=== PATIENT | female | born 1985 | race Two or more races ===

== ENCOUNTER 2016-12-04 10:51 | Emergency (ER) | payer OTHER ==
[~2016-12-04] VITALS: Ht 144.8 cm; Wt 49.0 kg
[2016-12-04 11:05] VITALS: BP 106/55
--- NOTE | 2016-12-04 11:31 | PHYS DOC ---
Past Medical History Past Medical History: No Pertinent History Past Surgical History: Appendectomy, Cholecystectomy, , Tubal ligation Alcohol Use: None Drug Use: None Adult General Chief Complaint Chief Complaint: SORE THROAT HPI HPI Patient is a 31 year old female presents to the emergency department with a history of sore throat, right ear pain and headache since yesterday. Patient denies fever, chills, nausea or vomiting. Patient had taken Ibuprofen yesterday however has not taken any since. Review of Systems Review of Systems Constitutional: Denies fever or chills [] Eyes: Denies change in visual acuity, redness, or eye pain [] HENT: Denies nasal congestion. C/o sore throat, right ear pain Respiratory: Denies cough or shortness of breath [] Cardiovascular: No additional information not addressed in HPI [] GI: Denies abdominal pain, nausea, vomiting, bloody stools or diarrhea [] : Denies dysuria or hematuria [] Musculoskeletal: Denies back pain or joint pain [] Integument: Denies rash or skin lesions [] Neurologic: headache, denies focal weakness or sensory changes [] Endocrine: Denies polyuria or polydipsia [] Allergies Allergies Allergies Coded Allergies Type Severity Reaction Last Updated Verified No Known Drug Allergies 03/25/15 No Physical Exam Physical Exam Constitutional: Well developed, well nourished, no acute distress, non-toxic appearance. [] HENT: Normocephalic, atraumatic, bilateral external ears normal, oropharynx moist, no oral exudates, nose normal. Bilateral TM normal, throat red no erythema noted. Eyes: PERRLA, EOMI, conjunctiva normal, no discharge. [] Neck: Normal range of motion, no tenderness, supple, no stridor. [] Cardiovascular:Heart rate regular rhythm, no murmur [] Lungs & Thorax: Bilateral breath sounds clear to auscultation [] Skin: Warm, dry, no erythema, no rash. [] Extremities: No tenderness, no cyanosis, no clubbing, ROM intact, no edema. [] Neurologic: Alert and oriented X 3, normal motor function, normal sensory function, no focal deficits noted. [] Psychologic: Affect normal, judgement normal, mood normal. [] Current Patient Data Vital Signs Vital Signs Date Time Temp Pulse Resp B/P (MAP) Pulse Ox O2 Delivery O2 Flow Rate FiO2 12/04/16 11:05 98.8 72 16 98 Room Air 98.8 EKG EKG [] Radiology/Procedures Radiology/Procedures [] Course & Med Decision Making Course & Med Decision Making Pertinent Labs and Imaging studies reviewed. (See chart for details) Patient will be discharged home in stable condition. Signs and symptoms to return to the emergency department has been provided. Recommended plenty of fluids such as water, gatorade and propel. Tylenol or ibuprofen for pain and discomfort. Patient was instructed to followup with primary care provider in 3- 5 days. Patient agrees with discharge instructions, treatment regimen and followup recommendations. All questions and concerns answered at patients bedside. All HPI, and discharge instructions was given via dot etcher apprentice line as patient speaks [place] only. [] Dragon Disclaimer Dragon Disclaimer This electronic medical record was generated, in whole or in part, using a voice recognition dictation system. Departure Departure Impression: Primary Impression: Pharyngitis Additional Impression: Viral infection Disposition: HOME, SELF-CARE Condition: STABLE Referrals: NO PCP (PCP) Patient Instructions: Viral Infections, [id number], Viral and Bacterial Pharyngitis, [id number] Additional Instructions: Activity as tolerated Sudafed and Mucinex DM as directed by manufacture Drink plenty of fluids: water, gatorade, propel Tylenol or Ibuprofen for pain and discomfort Followup with primary care provider in 3-5 days Return to emergency department as needed for signs and symptoms that become worse. Problem Qualifiers Primary Impression: Pharyngitis Pharyngitis/tonsillitis etiology: unspecified etiology Qualified Codes: J02.9 - Acute pharyngitis, unspecified GENEVIEVE ANTONIO COLD HEADER Dec 04, 2016 11:31
[2016-12-04 11:43] LABS: NEGATIVE OBC STREP NEG; POSITIVE OBC STREP POS
== END 2016-12-04 11:34 | disposition home or self-care (01) ==
LOC: ER 10:51
DX: J02.9 Acute pharyngitis, unspecified (principal); H92.01 Otalgia, right ear; R51 Headache
CPT/HCPCS: 87070; 87880; 99283

== ENCOUNTER 2016-12-07 13:24 | Emergency (ER) | payer OTHER ==
[~2016-12-07] VITALS: Ht 147.3 cm; Wt 49.0 kg
[2016-12-07 13:30] VITALS: BP 110/65
[2016-12-07 14:09] LABS: NEGATIVE OBC STREP NEG; POSITIVE OBC STREP POS
--- NOTE | 2016-12-07 14:16 | EKG ---
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
--- NOTE | 2016-12-07 14:30 | RAD ---
Chest x-ray Indication: Cough, sore throat Technique: PA and lateral views of the chest Comparison: None Findings: Heart is normal in size. Lungs are clear. No pneumothorax or pleural effusion. Visualized bony thorax within normal limits. Impression: No acute cardiopulmonary process.
[2016-12-07] MEDS ORDERED: METH4TAB2 PO (14:44)
[2016-12-07] MEDS ORDERED: AZIT250T6 PO (14:44)
--- NOTE | 2016-12-07 14:44 | PHYS DOC ---
Past Medical History Past Medical History: No Pertinent History Past Surgical History: Appendectomy, Cholecystectomy, , Tubal ligation Alcohol Use: None Drug Use: None Adult General Chief Complaint Chief Complaint: COUGH HPI HPI Patient is a 31 year old female presents the ED complaining of cough 5 days. Patient states she was seen in the ED 4 days ago and discharged with no medications. States she was told to take motrin for her pain with her cough. Patient states she has been taking ibuprofen which helps with her pain when she coughs but is not getting any better. Associated symptoms include rhinorrhea and sore throat. Patient also complains of subjective fever. Denies shortness of breath, weakness, recent travel, nausea/vomiting, abdominal pain, dizziness, syncope or change in stools. Review of Systems Review of Systems Constitutional: Complains of subjective fever. Denies chills [] Eyes: Denies change in visual acuity, redness, or eye pain [] HENT: Denies nasal congestion. Complains of sore throat. [] Respiratory: Complains of cough. Denies shortness of breath. [] Cardiovascular: No additional information not addressed in HPI [] GI: Denies abdominal pain, nausea, vomiting, bloody stools or diarrhea [] : Denies dysuria or hematuria [] Musculoskeletal: Denies back pain or joint pain [] Integument: Denies rash or skin lesions [] Neurologic: Denies headache, focal weakness or sensory changes [] Endocrine: Denies polyuria or polydipsia [] Allergies Allergies Allergies Coded Allergies Type Severity Reaction Last Updated Verified No Known Drug Allergies 03/25/15 No Physical Exam Physical Exam Constitutional: Well developed, well nourished, no acute distress, non-toxic appearance. [] HENT: Normocephalic, atraumatic, bilateral external ears normal, oropharynx moist, MILD PHARYNGEAL ERYTHEMA AND SWELLING. UVULA MIDLINE. NO PERITONSILAR ABSCESS. no oral exudates, nose normal. [] Eyes: PERRLA, EOMI, conjunctiva normal, no discharge. [] Neck: Normal range of motion, no tenderness, supple, no stridor. [] Cardiovascular:Heart rate regular rhythm, no murmur [] Lungs & Thorax: Bilateral breath sounds clear to auscultation [] Abdomen: Bowel sounds normal, soft, no tenderness, no masses, no pulsatile masses. [] Skin: Warm, dry, no erythema, no rash. [] Back: No tenderness, no CVA tenderness. [] Extremities: No tenderness, no cyanosis, no clubbing, ROM intact, no edema. [] Neurologic: Alert and oriented X 3, normal motor function, normal sensory function, no focal deficits noted. [] Psychologic: Affect normal, judgement normal, mood normal. [] Current Patient Data Vital Signs Vital Signs Date Time Temp Pulse Resp B/P (MAP) Pulse Ox O2 Delivery O2 Flow Rate FiO2 12/07/16 13:30 98.4 90 18 99 Room Air 98.4 Lab Values Laboratory Tests Test 12/07/16 14:00 Group A Streptococcus Rapid Negative (NEGATIVE) EKG EKG [] Radiology/Procedures Radiology/Procedures PROCEDURE: CHEST PA & LATERAL Chest x-ray Indication: Cough, sore throat Technique: PA and lateral views of the chest Comparison: None Findings: Heart is normal in size. Lungs are clear. No pneumothorax or pleural effusion. Visualized bony thorax within normal limits. Impression: No acute cardiopulmonary process.[] Course & Med Decision Making Course & Med Decision Making Pertinent Labs and Imaging studies reviewed. Discussed labs and imaging with patient. Patient's pain improved. Vital stable, no acute distress. Discussed follow-up with patient. Discussed reasons to return to the ED. Patient understands and agrees with plan. Dragon Disclaimer Dragon Disclaimer This electronic medical record was generated, in whole or in part, using a voice recognition dictation system. Departure Departure Impression: Primary Impression: Pharyngitis Additional Impression: Cough Disposition: 01 HOME, SELF-CARE Condition: STABLE Referrals: GINNA CALDERÓN MD (PCP) Patient Instructions: Cough, Adult, Viral Pharyngitis Scripts Methylprednisolone (MEDROL) 4 Mg Tab.ds.pk 1 PKG PO UD, #1 PKG Prov: FORTUNATO DIAZ 12/07/16 Azithromycin (AZITHROMYCIN TABLET) 250 Mg Tablet 1 PKG PO UD, #6 TAB Prov: FORTUNATO DIAZ 12/07/16 Problem Qualifiers FORTUNATO DIAZ Dec 07, 2016 14:44
== END 2016-12-07 14:50 | disposition home or self-care (01) ==
LOC: ER 13:24
DX: R05 Cough (principal); J02.9 Acute pharyngitis, unspecified; J34.89 Other specified disorders of nose and nasal sinuses; R50.9 Fever, unspecified
CPT/HCPCS: 71020; 87070; 87880; 93005; 99285-25

== ENCOUNTER 2017-03-05 16:31 | Emergency (ER) | payer OTHER | END 2017-03-05 18:10 | disposition home or self-care (01) | LOC: ER 16:31 | DX: M25.561 Pain in right knee (principal); Z90.49 Acquired absence of other specified parts of digestive tract; Z98.51 Tubal ligation status | CPT/HCPCS: 73564; 99284 ==